=== PATIENT | female | born 1955 | race Two or more races ===

== ENCOUNTER → 2024-12-24 | Outpatient (CLI) | payer MEDICARE, MEDICAID, SELFPAY ==
--- NOTE | 2024-12-24 | XR_ITS ---
Examination: Abdomen sonogram, complete Date and time of exam: December 24, 2024 at 1130 hrs. Indications: Epigastric pain right upper abdominal pain beginning one month ago. Technique: Multiple real-time grayscale transabdominal sonographic images of the abdomen have been obtained. Findings: Normal gallbladder Normal common bile duct 0.2 cm Pancreatic head 2.6 cm Aorta not enlarged Liver 13.8 cm fatty infiltration Normal hepatopedal portal venous flow Patent IVC Right kidney 11.2 cm cortex 1.4 cm 28 mm lower pole cyst 11 mm lower pole calculus Left kidney 11.3 cm in the cortex 1.2 cm Midpole cyst 9 mm Mild bilateral renal parenchymal scar formation Spleen not enlarged 14.4 cm Impression: Normal gallbladder Fatty liver 11 mm lower pole nonobstructing right renal calculus Mild splenomegaly
== END | disposition home or self-care (01) ==
PROVIDERS: PCP Nurse Practitioner Family; Referring Provider Nurse Practitioner Family; Visit Provider Nurse Practitioner Family
DX: K76.0 Fatty (change of) liver, not elsewhere classified (principal); N20.0 Calculus of kidney; R16.1 Splenomegaly, not elsewhere classified
CPT/HCPCS: 76700